=== PATIENT | male | born 1990 | race Caucasian/White ===

== ENCOUNTER 2018-10-29 23:57 | Emergency (ER) | payer MEDICAID ==
[~2018-10-29] VITALS: Ht 175.3 cm; Wt 83.9 kg
[2018-10-30 00:09] VITALS: BP_SYST 140
[2018-10-30] MEDS ORDERED: LEVOFLOXACIN 500 MG TABLET PO ONE (02:45)
[2018-10-30] MEDS ORDERED: SULFAMETHOXAZOLE/TRIMETHOPR DS 1 TABLET PO ONE (02:45)
[2018-10-30] MEDS ORDERED: HYDROcodone/ACETAMIN 5-325 MG TAB (NORCO/ VICODIN) PO ONE (02:45)
[2018-10-30 03:47] VITALS: BP_SYST 128
== END 2018-10-30 03:47 | disposition home or self-care (01) ==
LOC: SED 23:57 → EDBD 23:57 → SED 10-30 03:47
DX: L84 Corns and callosities (principal); L03.116 Cellulitis of left lower limb; R03.0 Elevated blood-pressure reading, without diagnosis of hypertension
CPT/HCPCS: 99284

== ENCOUNTER 2018-12-28 12:54 | Emergency (ER) | payer MEDICAID ==
[~2018-12-28] VITALS: Ht 170.2 cm; Wt 81.6 kg
[2018-12-28 13:10] VITALS: BP_SYST 122
[2018-12-28] MEDS ORDERED: cefTRIAXone 1 GM VIAL IM ONE (14:15)
[2018-12-28] MEDS ORDERED: SULFAMETHOXAZOLE/TRIMETHOPR DS 1 TABLET PO ONE (14:15)
[2018-12-28 14:35] VITALS: BP_SYST 128
== END 2018-12-28 14:35 | disposition home or self-care (01) ==
LOC: SED 12:54
DX: L03.116 Cellulitis of left lower limb (principal); F17.210 Nicotine dependence, cigarettes, uncomplicated
CPT/HCPCS: 96372; 99283; J0696

== ENCOUNTER 2019-01-16 01:11 | Emergency (ER) | payer MEDICAID ==
[~2019-01-16 01:11] MED LIST: ACETAMINOPHEN 325 MG TABLET ONE; CEPHALEXIN 500 MG CAPSULE ONE; SULFAMETHOXAZOLE IV ONE; TRIMETHOPRIM IV ONE
== END 2019-01-16 02:45 | disposition home or self-care (01) ==
LOC: SED 01:11
DX: L03.116 Cellulitis of left lower limb (principal); Z91.14 Patient's other noncompliance with medication regimen
CPT/HCPCS: 99284; J3490